=== PATIENT | male | born 1940 | race Caucasian/White ===

== ENCOUNTER 2021-02-13 10:15 | Day surgery (SDC) | payer MEDICARE ==
[2021-02-12 13:40] VITALS: BMI 33.7
[~2021-02-13 10:15] MED LIST: Pre Op ABX Message 1 EACH MISC MISCELLANE ONE
[2021-02-13] MEDS ORDERED: ONDANSETRON 4 MG/2 ML VIAL ONE (10:57)
[2021-02-13] MEDS ORDERED: LACTATED RINGERS 1,000 ML IV ONE (11:09)
[2021-02-13] MEDS ORDERED: ONDANSETRON 4 MG/2 ML VIAL IVP ONE (11:09)
[2021-02-13] MEDS ORDERED: DEXAMETHASONE SOD PHOSPHATE 4 MG/ML 1 ML VIAL IVP ONE (11:10)
[2021-02-13] MEDS ORDERED: ceFAZolin 3 GM in SODIUM CHLORIDE 0.9% 100 ML IVPB ONE (12:15)
[2021-02-13] MEDS ORDERED: NALOXONE 0.4 MG/ML 1 ML VIAL IV PRN (12:45)
[2021-02-13] MEDS ORDERED: ACETAMINOPHEN TAB 325 MG TAB PO PRN (12:45)
[2021-02-13] MEDS ORDERED: ONDANSETRON 4 MG/2 ML VIAL IVP PRN (12:45)
[2021-02-13] MEDS ORDERED: HYDROmorphone 0.2 MG/1 ML SYRINGE IVP PRN (12:45)
[2021-02-13] MEDS ORDERED: HYDROcodone/APAP 10-325MG 1 EACH TAB PO PRN (12:45)
[2021-02-13] MEDS ORDERED: bisacodyL 10 MG SUPP RECTAL PRN (12:45)
[2021-02-13] MEDS ORDERED: HYDROcodone/APAP 5-325MG 1 EACH TAB PO PRN (12:45)
[2021-02-13] MEDS ORDERED: HYDROmorphone 0.5 MG/0.5 ML SYRINGE IVP PRN ×2 (12:45)
[2021-02-13] MEDS ORDERED: NA PHOS,M-B/NA PHOS,DI-BA 133 ML ENEMA RECTAL PRN (12:45)
[2021-02-13] MEDS ORDERED: diazePAM 5 MG TAB PO PRN (12:45)
[2021-02-13] MEDS ORDERED: MAGNESIUM HYDROXIDE 2,400 MG/10 ML CUP PO PRN (12:45)
[2021-02-13] MEDS ORDERED: PROPOFOL 10 MG/ML 20 ML VIAL IV ONE (13:00)
[2021-02-13] MEDS ORDERED: MIDAZOLAM 2 MG/2 ML VIAL ONE (13:00)
[2021-02-13] MEDS ORDERED: LIDOCAINE 1% INJ 10MG/ML (20 ML MDV) ONE (13:00)
[2021-02-13] MEDS ORDERED: PHENYLEPHRINE-0.9% NACL SYG 1,000 MCG/10 ML SYRINGE ONE (13:00)
[2021-02-13] MEDS ORDERED: ceFAZolin 3,000 MG in SODIUM CHLORIDE 0.9% IRRIGATIO 3,000 ML IRRIGATION ONE (13:47)
[2021-02-13] MEDS: SODIUM CHLORIDE 0.9% 1,000 ML IV SCH ×2 (16:37→20:30)
[2021-02-13] MEDS: traMADol 50 MG TAB PO PRN (18:11)
[2021-02-13] MEDS: ASPIRIN 81 MG PO SCH (19:33)
[2021-02-13] MEDS ORDERED: SENNOSIDES-DOCUSATE SODIUM 1 EACH TAB PO SCH (21:00)
--- NOTE | 2021-02-13 21:17 | OP ---
OPERATIVE REPORT DATE OF PROCEDURE: 02/13/2021. SURGEON: Lavell Uriarte M.D. VETERINARY DENTIST: Solo Loera PA-C PREOPERATIVE DIAGNOSIS: 1. Right knee quadriceps tendon rupture. 2. Left knee quadriceps tendon rupture. POSTOPERATIVE DIAGNOSIS: 1. Right knee quadriceps tendon rupture. 2. Left knee quadriceps tendon rupture. OPERATION: 1. Right open quadriceps tendon repair. 2. Left open biceps tendon repair. ANESTHESIA: Spinal with sedation. ESTIMATED BLOOD LOSS: 25 mL. TOURNIQUET TIME: Right side: 33 minutes at 250 mmHg. Left side: 30 minutes at 250 mmHg. COMPLICATIONS: None apparent. DRAINS: None. DISPOSITION: Post-Anesthesia Care Unit INDICATIONS: Mr. Cunningham is a very pleasant 80-year-old male who injured both knees when he fell onto both knees, hyperflexing both knees approximately 4 weeks ago. Recently he had a scheduled cochlear implant and he underwent that surgery approximately 2 weeks ago. He did not seek any medical attention for his knee injuries until I saw him in the office yesterday. He has not been able to ambulate since these injuries. He initially had very large effusions resolved. When I saw him in the office yesterday with obvious bilateral quadriceps tendon ruptures, we did confirm this with an ultrasound exam in the office as well. He was fitted with hinged-knee braces, which he will utilize postoperatively yesterday in my office and then we scheduled him for surgical repair of his quadriceps tendons today. I had a long discussion with Chinmay and his son with regard to the risks of the procedure. The risks included but were not limited to risk of infection, nerve damage, bleeding, pain, and a small risk of deep vein thrombosis which could lead to fatal pulmonary embolism. There is also a risk that the tendons could fail to heal. Mr. Cunningham and his son both understood the risks. All of their questions were answered to their satisfaction. Appropriate informed consent was obtained. DESCRIPTION OF THE PROCEDURE: The patient was identified in the preoperative holding area. Surgical sites were marked 2 grams Ancef IV for prophylactic purposes. He was then transported to the operative suite. He was placed supine on the operating room table. A spinal anesthetic was then administered and dosed per the anesthesia department without apparent complication. Tourniquets were then placed high on the right and the left upper thigh, well padded in preparation for surgery. The patient's right and left lower extremities were then prepped and draped in the usual sterile fashion. A standard surgical pause was undertaken to ensure that we were operating on the correct site and that appropriate preoperative antibiotics had been given. All staff in the room were in agreement and we proceeded. We started with the right side. His right lower extremity was then exsanguinated with an Esmarch dressing. The tourniquet was then inflated to 250 mmHg. A 10-12 cm longitudinal incision centered over the distal aspect of the quadriceps tendon which extended to the inferior pole of the patella was then marked with a surgical pen. The incision was then made with a 10 blade scalpel through the subcutaneous tissue effusion. Clear joint fluid effusion was expressed. The quadriceps tendon interestingly had a significant delamination medially, where approximately 80% of the quadriceps tendon had torn off and retracted, and approximately 20% of the tendon from the vastus medialis oblique was still attached to the proximal pole of the patella. The entire lateral aspect of the quadriceps tendon was torn. The tendon also had healed or scarred to the subcutaneous tissue. When I had finally dissected out the quadriceps tendon from the scarred down subcutaneous tissue, the tendon was readily mobile and able to be brought back to the superior pole of the patella. I then utilized a 15 blade scalpel to gain a fresh tendon edge for healing. I also utilized a curette to remove any devitalized tissue and provide a nice bleeding surface for the repair on the proximal pole of the patella. This provided a nice bleeding surface of bone for our repair. I then ran a #2 FiberWire suture up the medial aspect of the tendon in a locking whipstitch fashion and then brought it down through the center of the tendon and I used a second #2 FiberWire suture with the lateral aspect of the tendon, which was taken with a locking Krackow configuration and then brought down through this part of the tendon. I then utilized a 2.5 mm drill bit to drill a hole through the patella from superior to inferior. This was the central hole. I then placed a 2.0 mm drill bit to drill a medial hole and again utilized a 2.0 drill to drill a lateral hole. The most lateral suture was taken down through the lateral hole and out through the patellar tendon. The 2 central limbs of the #2 FiberWires were then taken through the 2.5 mm drill hole and brought out superiorly through the patellar tendon, and the most medial limb was then taken through the most medial hole and again brought out through the patellar tendon. The knee was then thoroughly irrigated with sterile saline solution with antibiotic added. The medial sutures were then taken underneath the tendon and then tied very securely. This was also done with the lateral limbs of the as well. The knee was placed into full extension while these were sutured down. This brought the opposed quadriceps tendon to the bleeding bone trough that was made in the superior aspect of the patella. Both medial and lateral retinacula were then repaired with interrupted #1 Vicryl sutures. The repair was also oversewn anteriorly with #1 Vicryl interrupted suture. At this point the repair for the right quadriceps tendon was complete. The tourniquet was deflated. The total tourniquet time for the right side was 33 minutes. The wound was thoroughly irrigated with sterile saline solution with antibiotic added. The subcutaneous tissue was closed with 2-0 Vicryl interrupted suture and the was closed with a running 3-0 Quill suture. Dermabond was applied to the incision. We then proceeded with repair of the left quadriceps tendon. Again this leg was exsanguinated with an Esmarch dressing. The tourniquet was inflated to 250 mmHg. A 10- 12 cm longitudinal incision starting at the distal aspect of the quadriceps tendon and extending to the upper pole of the patella was then made with a 10 blade scalpel. Again, extensive joint fluid was encountered once we got through the subcutaneous fat layer. This was evacuated. Interestingly, he had a very similar situation with the left quadriceps tendon as he did with the right. The tendon from the vastus medialis oblique was still attached to the superior pole of the patella. A very small medial slip of quadriceps tendon was still attached. The entire lateral 80% of the lateral quadriceps tendon was completely detached and ruptured from the superior pole of the patella. Again the tendon was scarred to the overlying subcutaneous fat layer. This was again dissected out. The tendon was made very mobile. Again I utilized a scalpel to provide a fresh tendon surface for repair. I then created a nice bleeding bony trough in the superior aspect of the patella utilizing a curette. We again utilized a FiberWire suture, which was run up the medial side of the tendon and then brought down through the center, and then used a second #2 FiberWire suture up the lateral side of the tendon and down through the center. Again we made a 2.5 mm central drill hole and a 2.0 mm medial drill hole and a 2.0 mm lateral drill hole. Lateral sutures were taken through the most lateral drill hole and then the central 2 sutures were taken through the center 2.5 mm drill hole, and the most medial suture was taken down through the most medial 2.0 mm drill hole. All of the suture limbs were brought out anteriorly through the patellar tendon. The leg was then placed into full extension. The knee was thoroughly irrigated with sterile saline solution with antibiotic added via pulse lavage. The medial sutures were then tied very securely. The lateral sutures were likewise tied very securely. This securely brought the quadriceps tendon back into the prepared trough of the superior aspect of the patella. I then proceeded to repair both the medial and the lateral retinaculum with interrupted #1 Vicryl sutures. Anteriorly the construct was then strengthened with multiple #1 Vicryl interrupted sutures as well. The repair was very secure. At this point in time we proceeded with closure of the left knee. The tourniquet was then deflated. The total tourniquet time for the left knee was 30 minutes at 250 mmHg. The subcutaneous tissues were irrigated with sterile saline solution with antibiotic added. The subcutaneous tissue was closed with 2-0 Vicryl interrupted suture. The skin was then closed with a 3-0 Quill suture. Dermabond was then applied to the incision. Sterile compressive dressings were placed on both knees. Both legs were then placed into hinged-knee braces, locked in full extension. All sponge and needle counts were deemed correct prior to closure. The patient tolerated the procedure without apparent complication. He was transferred to the recovery room in stable condition. MMODL / IJN: [id number] /
[2021-02-14] MEDS: traMADol 50 MG TAB PO PRN ×3 (00:19→13:05)
[2021-02-14] MEDS: ASPIRIN 81 MG PO SCH (08:20)
[2021-02-14] MEDS: SODIUM CHLORIDE 0.9% 1,000 ML IV SCH (08:21)
[2021-02-14] MEDS ORDERED: NON FORMULARY DRUG (Vitamin B Complex [Vitamin B Complex] 1 EACH Capsule) PO SCH (09:00)
[2021-02-14] MEDS ORDERED: LOSARTAN 25 MG TAB PO SCH (09:00)
--- NOTE | 2021-02-14 10:56 | P.DS ---
Providers Expected date of discharge: 02/14/21 Attending physician: Lavell Uriarte Consults: 02/13/21 12:45 Consult Physician Routine Consulting Provider: Vasyl Martínez Consult Reason/Comments: post op medical management Do you want consulting provider notified?: Yes Primary care physician: Harpreet Ortiz - Discharge Diagnosis(es) (1) Quadriceps tendon rupture Patient was admitted to the OR on 02/13/21 to undergo bilateral open quad tendon repairs. He had failed conservative measures as an outpatient and desired to proceed with elective surgery after given informed consent. He underwent the above procedure which he tolerated well without complication. Postoperative hospital course has remained without complication. On day of discharge he is afebrile, vital signs stable, labs within acceptable ranges, tolerating by mouth meds and diet, voiding without difficulty, positive flatus, denies abdominal pain or calf pain, pain is controlled on oral pain medication and has no new complaints. Wound is benign, neurovascular status is intact, calf is soft and nontender, abdomen soft and nontender. Review of systems is negative for numbness, tingling, fever, chills, chest pain, shortness of breath, nausea, vomiting, dizziness, headaches, slurred speech or other. Current Visit: Yes Status: Acute Priority: Medium Procedures: Bilateral open quad tendon repair Patient Condition at Discharge: Good Plan - Discharge Summary Discharge Rx Participant: Yes New Discharge Prescriptions: New Aspirin [Adult Low Dose Aspirin EC] 81 mg PO BID #60 tab Docusate [Colace] 100 mg PO BID #60 cap HYDROcodone/APAP 7.5-325MG [[place] 7.5-325] 1 - 2 each PO Q6HR PRN #42 tab PRN Reason: Pain No Action Vitamin E 400 unit PO DAILY Magnesium 200 mg PO DAILY Glucosam/Piero-Msm1/C/Ritesh/Bosw [Glucosamine-Chondroitin Tablet] 1 each PO DAILY Losartan Potassium [Cozaar] 25 mg PO QAM Ascorbic Acid [Vitamin C] 1,000 mg PO DAILY Flaxseed(Dose Unknown) 1 tab PO DAILY Vitamin B Complex 1 each PO DAILY Calcium Carbonate/Vitamin D3 [Calcium 600-Vit D3 20 Mcg (800 Iu)] 1 each PO DAILY Zinc Tab 500 mg PO DAILY Discharge Medication List Ascorbic Acid [Vitamin C] 1,000 mg PO DAILY 02/12/21 [History] Calcium Carbonate/Vitamin D3 [Calcium 600-Vit D3 20 Mcg (800 Iu)] 1 each PO DAILY 02/12/21 [History] Flaxseed(Dose Unknown) 1 tab PO DAILY 02/12/21 [History] Glucosam/Piero-Msm1/C/Ritesh/Bosw [Glucosamine-Chondroitin Tablet] 1 each PO DAILY 02/12/21 [History] Losartan Potassium [Cozaar] 25 mg PO QAM 02/12/21 [History] Magnesium 200 mg PO DAILY 02/12/21 [History] Vitamin B Complex 1 each PO DAILY 02/12/21 [History] Vitamin E 400 unit PO DAILY 02/12/21 [History] Zinc Tab 500 mg PO DAILY 02/12/21 [History] Aspirin [Adult Low Dose Aspirin EC] 81 mg PO BID #60 tab 02/14/21 [Rx] Docusate [Colace] 100 mg PO BID #60 cap 02/14/21 [Rx] HYDROcodone/APAP 7.5-325MG [[place] 7.5-325] 1 - 2 each PO Q6HR PRN #42 tab 02/14/21 [Rx] Follow up Appointment(s)/Referral(s): Lavell Uriarte MD [STAFF PHYSICIAN] - 10 Days Activity/Diet/Wound Care/Special Instructions: Keep wounds clean and dry Take meds as directed Maintain braces and use walker assist while up and ambulating Follow-up with Dr. Uriarte in office Weight bear as tolerated May shower in 3 days if no bleeding Discharge Disposition: HOME WITH HOME HEALTH SERVICES
[2021-02-14 11:20] LABS: Basophils # (A) 0.03 X 10*3/uL (0.00-0.10); Basophils % (A) 0.3 %; Eosinophils # (A) 0.04 X 10*3/uL (0.04-0.35); Eosinophils % (A) 0.3 %; HCT 43.5 % (39.6-50.0); HGB 14.1 g/dL (13.0-17.0); Lymphocytes # (A) 1.97 X 10*3/uL (0.90-5.00); Lymphocytes % (A) 16.6 %; MCH 27.7 pg (27.0-32.0); MCHC 32.4 g/dL (32.0-37.0); MCV 85.5 fL (80.0-97.0); Mean Platelet Volume 10.3 fL (9.5-12.2); Monocytes # (A) 1.14 X 10*3/uL (0.20-1.00); Monocytes % (A) 9.6 %; Neutrophils # (A) 8.63 X 10*3/uL (1.80-7.70); Neutrophils % (A) 72.9 %; Platelet Count 206 X 10*3/uL (140-440); RBC 5.09 X 10*6/uL (4.40-5.60); RDW 14.1 % (11.5-14.5); WBC 11.85 X 10*3/uL (4.50-10.00)
[2021-02-14] MEDS ORDERED: MAGNESIUM OXIDE 400 MG TAB PO SCH (12:00)
[2021-02-14] MEDS ORDERED: VITAMIN E (DL,TOCOPHERYL ACET) 400 UNIT (180 MG) CAP PO SCH (12:00)
[2021-02-14] MEDS ORDERED: ASCORBIC ACID 500 MG TAB PO SCH (12:00)
[2021-02-14] MEDS ORDERED: MULTIVITAMINS, THERA 1 EACH TAB PO SCH (12:00)
[2021-02-14] MEDS ORDERED: CALCIUM CARB-VIT D 500 MG-5 MCG TAB PO SCH (12:00)
[2021-02-14 13:51] VITALS: BP 132/74; PULSE 88; RESP 17; TEMP 97.6
--- NOTE | 2021-02-14 13:52 | P.CONS ---
History of Present Illness - Reason for Consult Consult date: 02/13/21 Medical management Requesting physician: Lavell Uriarte - Chief Complaint Right knee pain - History of Present Illness Consultation: This is a pleasant 80-year-old patient, follows with Dr. Harpreet Ortiz. Chronic stable medical conditions include hypertension, history of brain bleed on the right site, some balance issues due to hearing, patient also had a culture implant behind the left ear 3 weeks ago. He had surgery on the right brain in May 2020 for pain relief. Patient's had progressive pain in the knees. Having failed conservative management patient proceeded to have surgery in the right knee. Patient today has undergone bilateral open quadriceps tendon repair. Postprocedure pain is controlled. No nausea vomiting. No dizziness nor lightheadedness. She does at the bedside. Patient also had injury to the knees after he fell backwards had hyper action of his knees on 01/10/2021. Has been having trouble walking since then. He had that cochlear implant on January 28. Review of systems: GEN.: None EYES: None HEENT: Decreased hearing NECK: None RESPIRATORY: None CARDIOVASCULAR: None GASTROINTESTINAL: None GENITOURINARY: None MUSCULOSKELETAL: Joint pains] LYMPHATICS: None HEMATOLOGICAL: None PSYCHIATRY: None NEUROLOGICAL: Does use assistive device or walking] Past medical history to include: Bilateral quadriceps tendon rupture, essential hypertension, cochlear implant, gait dysfunction Social history: . No history of smoking and alcohol Family history: Breast cancer Physical examination: VITAL SIGNS: 97.3, 94, 15, 154/80, 94% room air GENERAL: Average built, sitting up, comfortable. EYES: Pupils equal. Conjunctiva normal. HEENT: External appearance of nose and ears normal, oral cavity grossly normal decreased hearing. NECK: JVD not raised; masses not palpable. HEART: First and second heart sounds are normal; no edema. LUNGS: Respiratory rate normal; clear to auscultation. ABDOMEN: Soft, nontender, liver spleen not palpable, no masses palpable. PSYCH: Alert and oriented x3; mood and affect normal. MUSCULAR skeletal: Bilateral knee in a brace NEUROLOGICAL: Cranial nerves grossly intact; no facial asymmetry, power and sensation grossly intact. LYMPHATICS: No lymph nodes palpable in the axilla and neck Assessment and plan: -Bilateral quadriceps left and right knee repair. Patient has knee braces. PTOT and pain control -Hard of hearing. Cochlear implant on 01/28/2021. -History of brain bleed with surgery on May 2020 -Obesity BMI 32.3 Weight loss measures and follow with PCP -Essential hypertension Cozaar 25 mg daily Home medications resumed. PTOT. Pain control in place. Questions answered. Patient to follow-up with his PCP upon discharge Thank Dr. Uriarte Past Medical History Past Medical History: Hypertension Additional Past Medical History / Comment(s): hx "brain bleed" rt side of head. has had balance problems due to hearing issues. fell 4 weeks ago and injured tendons guillermo knees(can not stand on legs-in wheelchair) History of Any Multi-Drug Resistant Organisms: None Reported Past Surgical History: Ear Surgery, Orthopedic Surgery, Tonsillectomy Additional Past Surgical History / Comment(s): cochlear implant above and behind left ear 3 weeks ago, two toes reattached left foot, surgery on rt side of head for brain bleed 05/20/20 Past Anesthesia/Blood Transfusion Reactions: No Reported Reaction Past Psychological History: No Psychological Hx Reported Smoking Status: Never smoker Past Alcohol Use History: None Reported Past Drug Use History: None Reported - Past Family History Daughter(s) Family Medical History: Cancer Additional Family Medical History / Comment(s): breast cancer Medications and Allergies Home Medications Medication Instructions Recorded Confirmed Type Ascorbic Acid [Vitamin C] 1,000 mg PO DAILY 02/12/21 02/13/21 History Calcium Carbonate/Vitamin D3 1 each PO DAILY 02/12/21 02/13/21 History [Calcium 600-Vit D3 20 Mcg (800 Iu)] Flaxseed(Dose Unknown) 1 tab PO DAILY 02/12/21 02/13/21 History Glucosam/Piero-Msm1/C/Ritesh/Bosw 1 each PO DAILY 02/12/21 02/13/21 History [Glucosamine-Chondroitin Tablet] Losartan Potassium [Cozaar] 25 mg PO QAM 02/12/21 02/13/21 History Magnesium 200 mg PO DAILY 02/12/21 02/13/21 History Vitamin B Complex 1 each PO DAILY 02/12/21 02/13/21 History Vitamin E 400 unit PO DAILY 02/12/21 02/13/21 History Zinc Tab 500 mg PO DAILY 02/12/21 02/13/21 History Aspirin [Adult Low Dose Aspirin EC] 81 mg PO BID #60 tab 02/14/21 Rx Docusate [Colace] 100 mg PO BID #60 cap 02/14/21 Rx HYDROcodone/APAP 7.5-325MG [[place] 1 - 2 each PO Q6HR PRN #42 tab 02/14/21 Rx 7.5-325] Allergies Allergy/AdvReac Type Severity Reaction Status Date / Time No Known Allergies Allergy Verified 02/13/21 10:52 Physical Exam Vitals: Vital Signs Temp Pulse Pulse Resp BP Pulse Ox 02/13/21 16:16 82 16 137/80 95 02/13/21 16:05 70 16 142/83 93 L 02/13/21 15:47 58 L 16 122/67 93 L 02/13/21 15:37 61 16 135/75 95 02/13/21 15:13 97.0 F L 82 16 119/71 100 02/13/21 10:55 97.4 F L 81 18 165/82 97 Intake and Output 02/13/21 02/13/21 02/13/21 06:59 14:59 22:59 Intake Total 901 240 Output Total 25 Balance 876 240 Intake: IV 901 Oral 240 Output: Estimated Blood Loss 25 Other: Weight 130.181 kg 130.181 kg Results CBC & Chem 7: 02/14/21 07:32
--- NOTE | 2021-02-14 13:55 | P.PN ---
Progress Note - Text Progress Note Date: 02/14/21 - Chief Complaint Bilateral knee pain Consultation: This is a pleasant 80-year-old patient, follows with Dr. Harpreet Ortiz. Chronic stable medical conditions include hypertension, history of brain bleed on the right site, some balance issues due to hearing, patient also had a culture implant behind the left ear 3 weeks ago. He had surgery on the right brain in May 2020 for pain relief. Patient's had progressive pain in the knees. Having failed conservative management patient proceeded to have surgery in the right knee. Patient today has undergone bilateral open quadriceps tendon repair. Postprocedure pain is controlled. No nausea vomiting. No dizziness nor lightheadedness. She does at the bedside. Patient also had injury to the knees after he fell backwards had hyper action of his knees on 01/10/2021. Has been having trouble walking since then. He had that cochlear implant on January 28./2020February 14: Patient did walk a few steps with therapy. Some pain is present. Oral intake fair. No chest pain or short of breath. Patient getting discharged today. Discussed with the patient. Review of systems: Was done for constitutional, cardiovascular, GI, pulmonary. relevant finding as above Active Medications Acetaminophen (Acetaminophen Tab 325 Mg Tab) 650 mg PO Q4HR PRN PRN Reason: Pain Scale 1 to 5 Stop: 03/15/21 12:46 Hydrocodone Bitart/Acetaminophen (Hydrocodone/Apap 5-325mg 1 Each Tab) 1 each PO Q6HR PRN PRN Reason: Pain Scale 1 to 5 Stop: 03/15/21 12:46 Last Admin: 02/13/21 19:32 Dose: 1 each Documented by: Hydrocodone Bitart/Acetaminophen (Hydrocodone/Apap 10-325mg 1 Each Tab) 1 each PO Q6H PRN PRN Reason: Pain Scale 6 to 10 Stop: 03/15/21 12:46 Ascorbic Acid (Ascorbic Acid 500 Mg Tab) 1,000 mg PO DAILY@1200 ASHLEY Last Admin: 02/14/21 13:04 Dose: 1,000 mg Documented by: Aspirin (Aspirin 81 Mg) 81 mg PO BID ASHLEY Stop: 03/15/21 21:01 Last Admin: 02/14/21 08:20 Dose: 81 mg Documented by: Bisacodyl (Bisacodyl 10 Mg Supp) 10 mg RECTAL DAILY PRN PRN Reason: Constipation Stop: 03/15/21 12:46 Calcium Carbonate (Calcium Carb-Vit D 500 Mg-5 Mcg Tab) 1 each PO DAILY@1200 [facility] Last Admin: 02/14/21 13:04 Dose: 1 each Documented by: Diazepam (Diazepam 5 Mg Tab) 2.5 mg PO Q8HR PRN PRN Reason: Mild Spasms Stop: 03/15/21 12:46 Hydromorphone HCl (Hydromorphone 0.2 Mg/1 Ml Syringe) 0.2 mg IVP Q3HR PRN PRN Reason: Pain Scale 4 to 6 Stop: 03/15/21 12:46 Hydromorphone HCl (Hydromorphone 0.5 Mg/0.5 Ml Syringe) 0.125 mg IVP Q3HR PRN PRN Reason: Pain Scale 1 to 3 Stop: 03/15/21 12:46 Hydromorphone HCl (Hydromorphone 0.5 Mg/0.5 Ml Syringe) 0.5 mg IVP Q3HR PRN PRN Reason: Pain Scale 7 to 10 Stop: 03/15/21 12:46 Sodium Chloride (Saline 0.9%) 1,000 mls @ 100 mls/hr IV .Q10H [facility] Stop: 03/15/21 12:46 Last Admin: 02/14/21 08:21 Dose: 100 mls/hr Documented by: Losartan Potassium (Losartan 25 Mg Tab) 25 mg PO QAM [facility] Last Admin: 02/14/21 08:20 Dose: 25 mg Documented by: Magnesium Hydroxide (Magnesium Hydroxide 2,400 Mg/10 Ml Cup) 2,400 mg PO DAILY PRN PRN Reason: Constipation Stop: 03/15/21 12:46 Magnesium Oxide (Magnesium Oxide 400 Mg Tab) 200 mg PO DAILY@1200 [facility] Last Admin: 02/14/21 13:04 Dose: 100 mg Documented by: Multivitamins (Multivitamins, Thera 1 Each Tab) 1 each PO DAILY@1200 [facility] Stop: 03/16/21 12:01 Last Admin: 02/14/21 13:04 Dose: 1 each Documented by: Naloxone HCl (Naloxone 0.4 Mg/Ml 1 Ml Vial) 0.2 mg IV Q2M PRN PRN Reason: Opioid Reversal Stop: 03/15/21 12:46 Ondansetron HCl (Ondansetron 4 Mg/2 Ml Vial) 4 mg IVP Q8HR PRN PRN Reason: Nausea And Vomiting Stop: 03/15/21 12:46 Senna/Docusate Sodium (Sennosides-Docusate Sodium 1 Each Tab) 2 each PO HS [facility] Stop: 03/15/21 21:01 Last Admin: 02/13/21 19:32 Dose: 2 each Documented by: Sodium Biphosphate/Sodium Phosphate (Na Phos,M-B/Na Phos,Di-Ba 133 Ml Enema) 133 ml RECTAL DAILY PRN PRN Reason: Constipation Stop: 03/15/21 12:46 Tramadol HCl (Tramadol 50 Mg Tab) 50 mg PO Q6HR PRN PRN Reason: Pain Scale 1 to 5 Stop: 03/15/21 12:46 Last Admin: 02/14/21 13:05 Dose: 50 mg Documented by: Vitamin E (Vitamin E (Dl,Tocopheryl Acet) 400 Unit (180 Mg) Cap) 400 unit PO DAILY@1200 [facility] Last Admin: 02/14/21 13:08 Dose: 400 unit Documented by: Past medical history to include: Bilateral quadriceps tendon rupture, essential hypertension, cochlear implant, gait dysfunction Social history: . No history of smoking and alcohol Family history: Breast cancer Physical examination: VITAL SIGNS: 97.6, 88, 17, 132/74, 94% room air GENERAL: Laying in bed comfortable. EYES: Pupils equal. Conjunctiva normal. HEENT:decreased hearing. NECK: JVD not raised; masses not palpable. HEART: First and second heart sounds are normal; no edema. LUNGS: Respiratory rate normal; clear to auscultation. ABDOMEN: Soft, nontender, liver spleen not palpable, no masses palpable. PSYCH: Alert and oriented x3; mood and affect normal. MUSCULAR skeletal: Bilateral knee in a brace INVESTIGATIONS, reviewed in the clinical context: WBC 11.8 hemoglobin 14.1 platelets 206 Coronavirus [PCR]: Not detected Assessment and plan: -Bilateral quadriceps rupture with repair. Patient has knee braces. PTOT and pain control -Hard of hearing. Cochlear implant on 01/28/2021. -History of brain bleed with surgery on May 2020 -Obesity BMI 32.3 Weight loss measures and follow with PCP -Essential hypertension Cozaar 25 mg daily -Reactive leukocytosis with, no clinical evidence of infection Continue home medications. Discussed with the patient. Follow-up with PCP upon discharge Thank Dr. Uriarte
== END 2021-02-14 14:55 | disposition home health service (06) ==
LOC: OR 10:15 → 4SSUR 15:14 → OR 02-14 14:55
PROVIDERS: ATTEND Orthopaedic Surgery Sports Medicine
DX: S76.112A Strain of left quadriceps muscle, fascia and tendon, initial encounter (principal); S76.111A Strain of right quadriceps muscle, fascia and tendon, initial encounter; X50.1XXA Overexertion from prolonged static or awkward postures, initial encounter; I10 Essential (primary) hypertension; Z20.822 Contact with and (suspected) exposure to COVID-19; Z97.3 Presence of spectacles and contact lenses; Z96.21 Cochlear implant status; Z98.890 Other specified postprocedural states; Z79.899 Other long term (current) drug therapy
CPT/HCPCS: 97116; 97162; 97535; 97166; 85025; 87635; 27385; J1100; J0690 ×3; J2405